=== PATIENT | male | born 1995 | race African-American/Black ===

== ENCOUNTER → 2023-02-08 16:05 | Outpatient (CLI) | payer OTHER, SELFPAY ==
--- NOTE | 2023-02-08 16:19 | DI.RAD.S_ITS ---
PROCEDURE: XR CHEST 2V INDICATIONS: TB TECHNIQUE: 2 views of the chest were acquired. COMPARISON: None. FINDINGS: Surgical changes and devices: None. Lungs and pleura: Lungs are clear. No pleural effusions or pneumothorax. Mediastinum: Mediastinal contours are normal. Heart size is normal. Bones and chest wall: No suspicious bony abnormalities. Soft tissues appear unremarkable. IMPRESSION: No acute cardiopulmonary disease. Dictated by: Bimal Lujan M.D. on 02/08/2023 at 16:53 Approved by: Bimal Lujan M.D. on 02/08/2023 at 16:53
== END ==
PROVIDERS: Referring Provider Chiropractor; Visit Provider Chiropractor
DX: Z22.7 Latent tuberculosis (principal)
CPT/HCPCS: 71046